=== PATIENT | male | born 1960 | race Caucasian/White ===

== ENCOUNTER 2019-06-01 20:34 | Emergency (ER) | payer OTHER ==
[2019-06-01] MEDS ORDERED: TETANUS & DIPHTHERIA TOX,ADULT 0.5 ML VIAL ONE (21:06)
[2019-06-01] MEDS ORDERED: AMOX/K CLAV 875 MG TAB ONE (21:06)
[2019-06-01] MEDS ORDERED: LIDOCAINE 1% W/EPI 1:100,000 MDV 20 ML VIAL ONE (21:07)
[2019-06-01] MEDS ORDERED: BUPIVACAINE 0.5% PF 10 ML VIAL ONE (21:07)
--- NOTE | 2019-06-01 21:57 | RAD REPORT ---
EXAM DESCRIPTION: RAD - Hand Right 3 View - 06/01/2019 9:13 pm CLINICAL HISTORY: Right hand pain status post injury FINDINGS: No fracture or dislocation is seen. No radiopaque foreign body
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
[2019-06-01 23:47] VITALS: BP 155/79; TEMP 98.7; O2SAT 95
== END 2019-06-01 23:40 | disposition home or self-care (01) ==
LOC: ER 20:34
PROC: 0JQJ0ZZ Repair Right Hand Subcutaneous Tissue and Fascia, Open Approach (ICD-10-PCS; principal; 2019-06-01)
DX: S61.411A Laceration without foreign body of right hand, initial encounter (principal); S61.511A Laceration without foreign body of right wrist, initial encounter; W54.0XXA Bitten by dog, initial encounter; Y93.9 Activity, unspecified; Y92.9 Unspecified place or not applicable; Z23 Encounter for immunization
CPT/HCPCS: 90471; 90714; 99284